=== PATIENT | male | born 1965 | race Caucasian/White ===

== ENCOUNTER 2020-12-03 19:31 | Emergency (ER) | payer OTHER, BC, SELFPAY ==
--- NOTE | ~2020-12-03 | XR_ITS ---
EXAMINATION: XR humerus RT DATE: 12/03/2020 20:12 INDICATION: Mid shaft right humeral pain post lifting injury TECHNIQUE: Internal and axillary rotated views of the right humerus were obtained. COMPARISON: None. FINDINGS: Bone alignment is normal. No fracture. Joint spaces are relatively preserved with minimal likely dege nerative cystic changes at the lateral head of the right clavicle. Soft tissues are unremarkable. IMPRESSION: 1. No acute osseous abnormality. Reviewed, dictated and finalized at location A. AIGN SPECIALIST
[2020-12-03 19:32] VITALS: BP 145/92; PULSE 112; RESP 16; TEMP 36.4; O2SAT 98
[2020-12-03 20:07] VITALS: BP 131/74; PULSE 78; RESP 12; O2SAT 99
--- NOTE | 2020-12-03 20:20 | ED.GENADULT ---
HPI - General Adult General Chief complaint: Extremity Injury, Upper Stated complaint: right upper extremiy injury Time Seen by Provider: 12/03/20 19:42 Source: patient Mode of arrival: ambulatory Limitations: no limitations History of Present Illness HPI narrative: Patient presents with chief complaint of injury to the right arm the happened yesterday while at work while lifting the stove. Patient states he felt a popping sensation and had pain in the upper right arm. He states there is a swelling to the area and he has pain when he tries to flex his arm. Patient denies any other areas of injury. Patient denies loss of sensation or strength distally. Patient denies bony tenderness. Related Data Allergies Allergy/AdvReac Type Severity Reaction Status Date / Time No Known Allergies Allergy Verified 12/03/20 19:55 Review of Systems Review of Systems: Narrative: CONSTITUTIONAL: Denies fever, chills, or sweats. EYES: Denies visual changes, redness, or discharge. ENT: Denies rhinorrhea, congestion, sore throat, or otalgia. CARDIOVASCULAR: Denies chest pain, palpitations, or edema. RESPIRATORY: Denies cough or dyspnea. GASTROINTESTINAL: Denies abdominal pain, nausea, vomiting, or diarrhea. GENITOURINARY: Denies dysuria or hematuria. SKIN: Denies rash or itching. MUSCULOSKELETAL: Reports right arm injury denies back pain, joint pain, or myalgia. NEUROLOGIC: Denies headache, numbness, dizziness, or weakness. PSYCHIATRIC: Denies anxiety or depression. [facility] Family History Family History (Updated 01/30/19 @ 11:46 by DOCTOR UNKNOWN) Other Hypertension Social History Social History Smoking status: Former smoker Smoking end date: 10/24/11 Alcohol intake: never Gender identity (if verbalized by the patient): Male Exam Narrative: Exam Narrative: GENERAL: Well-appearing, well-nourished, and in no acute distress. HEAD: Normocephalic, atraumatic. EYES: PERRLA and EOMI. NECK: Supple. No adenopathy or masses. CHEST: Clear to auscultation. No respiratory distress. No wheezes rales or rhonchi HEART: Regular rate and rhythm. EXTREMITIES: Patient has bicep tendon deformity. Patient has pain with flexion and initiation of passive. Patient does not have bony tenderness to right upper extremity. 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 Cap refill intact distally. SKIN: Warm, dry, no rash. NEURO: No focal deficits. Alert and oriented x3. PSYCH: Normal mood and affect. Course Vital Signs Vital signs: Vital Signs Temperature 97.5 F L 12/03/20 19:32 Pulse Rate 112 H 12/03/20 19:32 Respiratory Rate 16 12/03/20 19:32 Blood Pressure 145/92 H 12/03/20 19:32 Pulse Oximetry 98 12/03/20 19:32 Temperature 97.5 F L 12/03/20 19:32 Pulse Rate 112 H 12/03/20 19:32 Respiratory Rate 16 12/03/20 19:32 Blood Pressure 145/92 H 12/03/20 19:32 Pulse Oximetry 98 12/03/20 19:32 Medical Decision Making MDM Narrative Medical decision making narrative: Patient is sitting in room comfortably texting. In no distress or sign of discomfort. Discussed with patient that we will obtain x-ray to make sure he did not have any underlying fractures. However he does not appear the patient has bicep tendon deformity. Patient instructed that he needs to wear immobilizer and follow up with Orthopedics for further imaging and investigation into management of the biceps tendon rupture. Differential Diagnosis Differential Diagnosis: Fracture, sprain, strain, tendon rupture Vital Signs Vital Signs: Vital Signs Temperature 97.5 F L 12/03/20 19:32 Pulse Rate 112 H 12/03/20 19:32 Respiratory Rate 16 12/03/20 19:32 Blood Pressure 145/92 H 12/03/20 19:32 Pulse Oximetry 98 12/03/20 19:32 Temperature 97.5 F L 12/03/20 19:32 Pulse Rate 112 H 12/03/20 19:32 Respiratory Rate 16 12/03/20 19:32 Blood Pressure 145/92 H 12/03/20 19:32 Pulse Oximetry 98 12/03/20 19:32 Imaging Data Radi
== END 2020-12-03 20:55 | disposition home or self-care (01) ==
PROVIDERS: Emergency Provider Emergency Medicine; PCP Emergency Medicine
DX: S46.211A Strain of muscle, fascia and tendon of other parts of biceps, right arm, initial encounter (principal); I10 Essential (primary) hypertension; X50.0XXA Overexertion from strenuous movement or load, initial encounter
CPT/HCPCS: 73060; 99283

== ENCOUNTER → 2021-02-10 03:30 | Outpatient (CLI) | payer OTHER, SELFPAY ==
[2021-02-10 20:30] LABS: SARS-CoV-2 RNA PCR Negative
== END ==
PROVIDERS: PCP Emergency Medicine; Visit Provider Orthopaedic Surgery
DX: Z01.812 Encounter for preprocedural laboratory examination (principal); Z20.822 Contact with and (suspected) exposure to COVID-19
CPT/HCPCS: C9803; U0003; U0005

== ENCOUNTER 2021-02-10 13:31 | Outpatient (CLI) | payer OTHER, SELFPAY ==
--- NOTE | 2021-02-10 13:30 | ECG_ITS ---
Measurements Intervals [place] Rate: 96 P: 22 SC: 165 QRS: 35 QRSD: 106 T: 51 QT: 359 QTc: 454 Interpretive Statements SINUS RHYTHM POOR R WAVE PROGRESSION, ANTERIOR LEADS MINIMAL Q WAVES- INFERIOR LEADS BASELINE ARTIFACT- I, II, III BORDERLINE ECG Electronically Signed On 02-10-2021 13:48:50 CDT by Reynold Ceja D.O.
== END 2021-02-10 13:32 | disposition home or self-care (01) ==
LOC: ANHSURGERY 13:33
PROVIDERS: PCP Emergency Medicine; Visit Provider Orthopaedic Surgery
DX: I10 Essential (primary) hypertension (principal); Z01.818 Encounter for other preprocedural examination; R94.31 Abnormal electrocardiogram [ECG] [EKG]
CPT/HCPCS: 93005

== ENCOUNTER 2021-02-15 18:55 | Emergency (ER) | payer BC, SELFPAY ==
[2021-02-15 18:59] VITALS: BP 130/89; PULSE 100; RESP 18; TEMP 36.7; O2SAT 98
--- NOTE | 2021-02-15 19:03 | ED.MALEGU ---
HPI - Male Genitourinary General Chief complaint: Urogenital-Male Stated complaint: testicle pain/swelling Time Seen by Provider: 02/15/21 19:15 Source: patient and RN notes reviewed Mode of arrival: ambulatory Limitations: no limitations History of Present Illness HPI Narrative: 55-year-old male presents with concern for 3-day history of right sided testicle swelling, pain. Denies any injury or trauma. Denies dysuria, hematuria, abnormal penile discharge. Denies frequency, urgency. Denies fever, body aches, chills, sweats. Reports headache. Reports 6-month history of urine hesitancy, does not have a primary care provider. MD Complaint: testicle pain and testicle swelling Related Data Home Medications Medication Instructions Recorded Confirmed albuterol 90 mcg INHALATION Q4-6H PRN 02/09/21 02/15/21 Allergies Allergy/AdvReac Type Severity Reaction Status Date / Time No Known Allergies Allergy Verified 02/09/21 10:51 Review of Systems Review of Systems: Narrative: CONSTITUTIONAL: Denies malaise, chills, sweats, or fever. CARDIOVASCULAR: Denies chest pain, palpitations, or edema. RESPIRATORY: Denies cough or dyspnea. GASTROINTESTINAL: Denies abdominal pain, nausea, vomiting GENITOURINARY: Reports right testicle pain and swelling. Denies dysuria or hematuria. SKIN: Denies rash or itching. MUSCULOSKELETAL: Denies back pain, joint pain, or myalgia. NEUROLOGIC: Reports headache. PSYCHIATRIC: Denies anxiety or depression. All systems reviewed & are unremarkable except as noted in HPI and below PMFSH Past Medical History Medical History Arthritis COPD (chronic obstructive pulmonary disease) HTN (hypertension) PEMA (obstructive sleep apnea) Rupture of right proximal biceps tendon Smoker Family History Family History Other Hypertension Social History Social History Years smoked: 32 Smoking status: Current every day smoker Tobacco type: cigarettes and e-cigarettes/vaping Smoking end date: 10/24/11 Alcohol intake: never Substance use: current Substance use type: marijuana Other substance usage details: MARIJUANA A COUPLE TIMES A WEEK Gender identity (if verbalized by the patient): Male Spiritual care concerns: No Comments At time of signature, agree with nursing past medical, surgical, social and family history. There is no relevant family history pertinent to the presenting complaint Exam Narrative: Exam Narrative: GENERAL: Well-appearing, well-nourished, and in no acute distress. HEAD: Normocephalic EYES: PERRLA, conjunctivae clear ENT: Mucous membranes moist NECK: Supple. CHEST: No respiratory distress. Speaks in full sentences. ABDOMEN: Soft, nontender HEART: Regular rate and rhythm. SKIN: Warm, dry, no rash. NEURO: Alert and oriented x3. PSYCH: Normal mood and affect : Scrotum: scrotal swelling Testes: Enlarged testicle(s) present, epididymal tenderness and testicular tenderness Course Course Emergency Course: Discussed with patient testicular pain and swelling are better evaluated in the emergency department, discussed with patient transfer to the emergency department. Patient refuses transfer to the emergency department at this time, will treat the patient to the best of my ability at the [facility]. Patient understands reasons to presents emergency department if symptoms worsen or do not improve. Anticipatory guidance given. Patient agrees to follow-up as directed and is aware of reasons to seek care at the emergency department. Portions of this record may have been created with voice recognition software Vital Signs Vital signs: Vital Signs Temperature 98.1 F 02/15/21 18:59 Pulse Rate 100 02/15/21 18:59 Respiratory Rate 18 02/15/21 18:59 Blood Pressure 130/89 02/15/21 18:59 Pulse Oximetry 98 02/15/21 18:59 Temperature 98.1 F
== END 2021-02-15 19:30 | disposition home or self-care (01) ==
PROVIDERS: Emergency Provider Nurse Practitioner
DX: N50.811 Right testicular pain (principal); N50.89 Other specified disorders of the male genital organs; M19.90 Unspecified osteoarthritis, unspecified site; J44.9 Chronic obstructive pulmonary disease, unspecified; I10 Essential (primary) hypertension; G47.33 Obstructive sleep apnea (adult) (pediatric); F17.210 Nicotine dependence, cigarettes, uncomplicated
CPT/HCPCS: 81003; 99213; G0463

== ENCOUNTER 2021-03-24 13:07 | Outpatient (CLI) | payer BC, SELFPAY ==
--- NOTE | ~2021-03-24 | US_ITS ---
EXAMINATION: US scrotum doppler DATE: 03/24/2021 13:36 INDICATION: Epididymitis TECHNIQUE: Testicular sonogram utilizing grayscale and Doppler COMPARISON: None. FINDINGS: The right testis measures 4.6 x 2.1 x 2.8 cm. The left testis measures 4.4 x 2.0 x 2.7 cm. Normal gra yscale appearance to the left testis. The right testis demonstrates scintigraphic pattern of some het erogeneous echogenicity. There is however symmetric normal vascular flow to both testes. The right ep ididymis is thickened and hypoechoic with increased vascular flow on color Doppler consistent with ep ididymitis. There is a 1.2 cm targetoid-appearing lesion at the right epididymis which is peripherall y hypoechoic with 4 mm central anechoic region and intervening hyperechoic region. The left epididymi s is normal with normal vascular flow. There is no varicocele or hydrocele. There is subcutaneous yeyo ma at the right base of the scrotum. IMPRESSION: 1. Thickened hypoechoic right epididymis with increased vascular flow consistent with epididymitis. 2. 1.2 cm diameter targetoid-appearing centrally cystic lesion at the right epididymis with different ial including epididymal abscess, inflammation surrounding an epididymal cyst, granuloma or less like ly neoplasm. 3. Mild non mass like genius echogenicity of the right testis likely representing mild reactive edema but with normal vascular flow on color Doppler. Reviewed, dictated and finalized at location A. IMPRESSION: 1. Thickened hypoechoic right epididymis with increased vascular flow consiste nt with epididymitis. 2. 1.2 cm diameter targetoid-appearing centrally cystic lesion at the right epi didymis with differential including epididymal abscess, inflammation surroundin g an epididymal cyst, granuloma or less likely neoplasm. 3. Mild non mass like genius echogenicity of the right testis likely representi ng mild reactive edema but with normal vascular flow on color Doppler.
== END 2021-03-24 13:08 ==
LOC: MICIMG 13:08
PROVIDERS: Visit Provider Urology
DX: N45.1 Epididymitis (principal); N50.9 Disorder of male genital organs, unspecified
CPT/HCPCS: 76870; 93976

== ENCOUNTER 2021-05-26 00:10 | Day surgery (SDC) | payer OTHER, SELFPAY ==
--- NOTE | 2021-02-05 08:53 | PM.IMHP ---
H&P: HPI History of Present Illness Date/Time: Shoulder/Arm Injury/Condition Right shoulder/bicep injury DOI: 12/02/20 [id number] from injury. Pt states he was at work and was lifting an oven into a truck and felt a pop in his Rt shoulder/bicep. Pt went to ER and was placed in an immobilizer. Pt states he has been taking Ibuprofen with little relief. MRI performed 01/07/21. Pt is WC. Date of injury/condition: 12/02/20 Current symptoms: Reports locking, catching, instability, stiffness and weakness Location: arm and superior Character: constant, radiating and throbbing Onset: 1-3 months Swelling location: arm and anterior Exacerbated by: motion, lifting, prolonged activity, reaching/overhead motion and lying on affected side Previous treatments: Anti-inflammatory meds: right, Sling: right, Ice: right and Elevation: right Previous surgeries: rotator cuff repair (Lt RTC DOS: 02/07/19 by PSB) Improved by treatment/surgery: too soon to tell Chief Complaint: SHOULDER PAIN Review of Systems Review of Systems: All systems reviewed & are unremarkable except as noted in HPI and below Constitutional: Constitutional: Denies headache(s) and Denies weakness Eyes: Eyes: Denies blurry vision, Denies change in vision and Denies loss of vision ENT: Denies dizziness, Denies dry mouth, Denies headache(s) and Denies nasal congestion Cardiovascular: Cardiovascular: Denies chest pain, Denies syncope, Denies leg edema and Denies dyspnea on exertion Respiratory: Respiratory: Denies cough and Denies dyspnea on exertion Gastrointestinal: Gastrointestinal: Denies abdominal pain, Denies constipation and Denies diarrhea Genitourinary: Genitourinary: Denies urinary frequency Musculoskeletal: Musculoskeletal: Reports as per HPI and Denies numbness Integumentary/Breasts: Skin/Breast: Reports system reviewed and no additional complaints, except as docu Neurologic: Reports Sensory deficit (Neuro) (MILD RIGHT SIDED DECREASE IN L5,S1 DERMATOME) Psychiatric: Psychiatric: Reports no additional psychiatric complaints Endocrine: Endocrine: Reports no additional endocrine complaints Hematologic/Lymphatic: Hematologic/Lymphatic: Reports no additional hematologic/lymphatic complaints PMFSH Past Medical History Medical History Rupture of right proximal biceps tendon Family History Family History Other Hypertension Social History Social History Smoking end date: 10/24/11 Alcohol intake: never Gender identity (if verbalized by the patient): Male Meds Home Medications and Allergies Home Medications Medication Instructions Recorded Confirmed Type diazepam 5 mg tablet 5 mg PO ONCE PRN tablet 12/23/20 01/12/21 History chlorhexidine gluconate 4 % 1 applic TOPICAL ONCE #237 ml 01/20/21 Rx topical liquid Allergies Allergy/AdvReac Type Severity Reaction Status Date / Time No Known Allergies Allergy Verified 01/12/21 11:49 Exam Narrative: Exam Narrative: Extrem Right upper extremity: normal capillary refill, shoulder/upper arm (smooth rom. ) abnormal to inspection (OBVIOUS PROXIMAL BICEPS TEAR.), tenderness, axillary nerve sensory function normal and abnormal ROM (rom RR 0 TO 160 DEG ABD 0 TO 160 DEG), elbow/forearm normal to inspection and Extremity exam: right hand normal to inspection and neuromotor exam normal; No normal to inspection, cyanosis, edema or no joint enlargement Other: Shoulder exam Right Anterior apprehension negative Right relocation negative Right Anterior translation negative Right Posterior translation negative Right Inferior translation negative Left Anterior apprehension negative Left relocation negative Left Anterior translation negative Left Posterior translation negative Left Inferior translation negative Right positive Shaylee's
[2021-02-09 10:56] VITALS: BMI 27.9
--- NOTE | 2021-02-12 10:02 | WPDANESEPPF ---
Anes - Initial Pre Proc Eval Procedure: Operation Date: 02/13/21 12:00 Proposed Procedures p Right Rotator Cuff Repair, Biceps Tenodesis - Zhen Olmos MD Date/Time: 02/12/21 10:02 Surgeon: Zhen Olmos MD Pre Op Diagnosis: right rotator cuff tear, right biceps tear Patient Data Age: 55 Gender: M Height: 1.8 m Weight: 91 kg Allergies Allergy/AdvReac Type Severity Reaction Status Date / Time No Known Allergies Allergy Verified 02/09/21 10:51 Home Medications Medication Instructions Recorded Confirmed Type chlorhexidine gluconate 4 % 1 applic TOPICAL ONCE #237 ml 01/20/21 02/09/21 Rx topical liquid albuterol 90 mcg INHALATION PRN PRN 02/09/21 02/09/21 History gabapentin 150 mg PO BID 02/09/21 02/09/21 History ibuprofen 600 mg PO DAILY PRN 02/09/21 02/09/21 History turmeric 400 mg PO DAILY 02/09/21 02/09/21 History PMFSH Past Medical History Medical History Arthritis COPD (chronic obstructive pulmonary disease) HTN (hypertension) PEMA (obstructive sleep apnea) Rupture of right proximal biceps tendon Smoker Family History Family History Other Hypertension Social History Social History Years smoked: 32 Smoking status: Current every day smoker Tobacco type: cigarettes and e-cigarettes/vaping Smoking end date: 10/24/11 Alcohol intake: never Substance use: current Substance use type: marijuana Other substance usage details: MARIJUANA A COUPLE TIMES A WEEK Gender identity (if verbalized by the patient): Male Spiritual care concerns: No Anes - Eval Final PreProcedure Day of Procedure 02/12/21 10:02 Patient weight: overweight Heart: regular rate and rhythm Lungs: clear to auscultation and normal air movement Airway: Mallampati scale class II Neurological: alert and oriented Last oral intake: >/= 8 hours ASA classification: III Emergent: no Anesthetic plan: proceed Anesthesia type and monitoring: general ETT Informed Consent: The patient's anesthetic plan and its attendant risks and benefits were discussed with the patient/family/POA. Questions were solicited and answers provided to the satisfaction of the patient/family/POA.
--- NOTE | 2021-03-02 15:25 | PC.NURSE ---
Pt medications updated. Pt states went to urgent care about 2 weeks ago due to swollen right testicle - diagnosed as epididymitis and given 10 day course of Levaquin. Has finished antibiotics, testicle still swollen and tender. Pt states no longer has primary care provider. Advised pt that if pain and swelling is still present, he should return to urgent care. Pt acknowledges understanding. Pt also states he did some speed 2 days ago (02/28/21). Pt states it was methamphetamine powder. Left message with Dr. Olmos's office to notify him of methamphetamine use and swollen testicle/epididymitis. New Covid date/time and pre-op instructions reviewed with pt. Pt denies any questions at this time.
--- NOTE | 2021-05-22 15:51 | PC.NURSE ---
PT DENIES ANY CHANGE IN HEALTH OR MEDICATION SINCE INTERVIEW. NEW INSTRUCTIONS GIVEN. PT DENIES ANY QUESTIONS.
[2021-05-26 10:18] VITALS: BP 144/104; PULSE 89; RESP 16; TEMP 37; O2SAT 100
--- NOTE | 2021-05-26 11:16 | SUR.PREOP ---
[id number] dr dean aware pt elevated bp and sob. dr dean to pt side and talked with pt and examined pt. pt states no primary care physician at this time to help control asthma and copd. dr dean called dr hou and decision made to cancel procedure until bp and asthma more controlled. pt sent home with instructions.
== END 2021-05-26 11:10 | disposition home or self-care (01) ==
PROVIDERS: Visit Provider Orthopaedic Surgery
PROC: (CPT 23420; principal; 2021-05-26 12:00)
DX: S46.011A Strain of muscle(s) and tendon(s) of the rotator cuff of right shoulder, initial encounter (principal); S46.211A Strain of muscle, fascia and tendon of other parts of biceps, right arm, initial encounter; X50.0XXA Overexertion from strenuous movement or load, initial encounter; Y92.9 Unspecified place or not applicable; Y99.0 Civilian activity done for income or pay; R03.0 Elevated blood-pressure reading, without diagnosis of hypertension; R06.02 Shortness of breath; F15.90 Other stimulant use, unspecified, uncomplicated; N50.89 Other specified disorders of the male genital organs; Z53.09 Procedure and treatment not carried out because of other contraindication
CPT/HCPCS: 99212; G0463